=== PATIENT | male | born 1995 | race African-American/Black ===

== ENCOUNTER 2023-04-27 12:14 | Emergency (ER) | payer OTHER ==
[2023-04-27 12:42] VITALS: BP 106/67; PULSE 67; RESP 19; TEMP 98.2; BMI 27.6
[2023-04-27] MEDS ORDERED: ACETAMINOPHEN 325 MG TABLET (FP) ONE (14:20)
[2023-04-27 14:21] LABS: BASO % 0.4 % (0-2.0); EOS % 0.1 % (0-4.5); HEMATOCRIT 42.6 % (35.4-49); HEMOGLOBIN 13.5 GM/dL (11.7-16.9); LYMPH % 10.9 % (8-40); MCH 24.4 pg (25.7-33.7); MCHC 31.7 g/dl (32.0-35.9); MEAN CELL VOLUME 77.1 fl (80-96); MEAN PLT VOLUME 7.3 fl (7.5-11.1); MONO % 5.7 % (3.8-10.2); NEUT % 82.9 % (42.8-82.8); PLATELET COUNT 229 10^3/uL (134-434); RBC 5.52 M/mm3 (4.00-5.60); RDW 14.5 % (11.9-15.9); WHITE BLOOD COUNT 12.2 K/mm3 (4.0-10.0)
[2023-04-27] MEDS ORDERED: ACETAMINOPHEN 325 MG TABLET (FP) PO ONE (14:30)
[2023-04-27 14:42] LABS: POTASSIUM 4.1 mmol/L (3.5-5.1)
[2023-04-27 14:43] LABS: CALCIUM 9.1 mg/dL (8.5-10.1)
[2023-04-27 14:44] LABS: ALBUMIN 4.2 g/dl (3.4-5.0); BLOOD UREA NITROGEN 9.5 mg/dL (7-18)
[2023-04-27 14:47] LABS: CREATININE 0.9 mg/dL (0.55-1.3)
[2023-04-27 14:48] LABS: TOT PROT 7.5 g/dl (6.4-8.2)
[2023-04-27 14:49] LABS: BILIRUBIN,TOTAL 0.4 mg/dL (0.2-1)
[2023-04-27] MEDS ORDERED: levETIRAcetam 500 MG TABLET (FP) PO ONE ×2 (15:49→16:00)
[2023-04-27 15:53] LABS: PH,URINE 5.5 (5.0-8.0); URINE APPEARANCE CLEAR; URINE BILIRUBIN NEGATIVE (NEGATIVE); URINE COLOR YELLOW; URINE GLUCOSE (UA) NEGATIVE (NEGATIVE); URINE KETONE NEGATIVE (NEGATIVE); URINE LEUK ESTERASE NEGATIVE (NEGATIVE); URINE NITRITE NEGATIVE (NEGATIVE); URINE PROTEIN NEGATIVE (NEGATIVE); URINE UROBILINOGEN 0.2 mg/dL (0.2-1.0)
== END 2023-04-27 17:28 | disposition home or self-care (01) ==
LOC: JER 12:14
DX: M25.522 Pain in left elbow (principal); G40.909 Epilepsy, unspecified, not intractable, without status epilepticus; Z20.822 Contact with and (suspected) exposure to COVID-19
CPT/HCPCS: 0241U-QW; 36415; 70450-TC; 73070-TC-LT-FY; 80053; 80177; 81003; 83605; 85025; 87086; 99284-25